=== PATIENT | female | born 1995 | race Caucasian/White ===

== ENCOUNTER → 2020-04-17 | Outpatient (REF) | LOC: COL.LAB 15:46 | DX: Z20.828 Contact with and (suspected) exposure to other viral communicable diseases (principal) ==

== ENCOUNTER 2021-01-16 04:52 | Emergency (ER) | payer OTHER ==
[~2021-01-16] VITALS: Ht 162.6 cm; Wt 88.6 kg
[2021-01-16 04:59] VITALS: BP 159/113; TEMP 98.2
[2021-01-16 05:17] LABS: COLLECTION METHOD CLEAN CATCH
[2021-01-16 05:20] LABS: BASO # 0.1 (0.0-0.2); BASO % 0.5 % (0.0-2.0); EOS # 0.6 (0.0-0.7); GRAN # 5.1 (1.4-6.5); GRAN % 51.2 % (42.2-75.2); LYMPH # 3.3 (1.2-3.4); LYMPH % 32.9 % (20.0-51.0); MEAN CELL VOLUME 89 fl (80.0-100.0); MEAN CORPUSCULAR HEMOGLOBIN 30 pg (27.0-31.0); MEAN CORPUSCULAR HGB CONC 34 g/dl (33.0-37.0); MEAN PLATELET VOLUME 10.1 fl (7.4-10.4); MONO # 0.9 (0.1-0.6); MONO % 9.2 % (1.7-9.3); PLATELET COUNT 264 K/mm3 (130-400); RED BLOOD COUNT 4.93 M/mm3 (4.10-5.30); REDCELL DISTRIBUTION WIDTH-CV 12.4 % (11.5-14.5)
[2021-01-16 05:23] LABS: PH 5 (5-8); SQUAMOUS EPITHELIAL 0-2 /hpf; URINE APPEARANCE Clear; URINE BACTERIA None Seen /hpf; URINE BILIRUBIN Negative (NEGATIVE); URINE BLOOD 2+ (NEGATIVE); URINE COLOR Straw; URINE GLUCOSE Negative (NEGATIVE); URINE KETONE Negative (NEGATIVE); URINE LEUKOCYTE ESTERASE Negative (NEGATIVE); URINE NITRATE Negative (NEGATIVE); URINE PROTEIN(semi-quant) Negative (NEGATIVE); URINE RBC 0-2 /hpf; URINE UROBILINOGEN Negative (NEGATIVE)
[2021-01-16 05:42] LABS: ALBUMIN 4.3 gm/dL (3.5-5.0); BILIRUBIN,TOTAL 0.7 mg/dL (0.2-1.2); CALCIUM 9.6 mg/dL (8.4-10.2); CREATININE, serum 0.82 mg/dL (0.57-1.11); POTASSIUM 3.8 mmol/L (3.5-4.5); TOTAL PROTEIN 7.6 gm/dL (6.2-8.1)
[2021-01-16] MEDS ORDERED: FLEXERIL 1010 MG/TAB PO (06:48)
[2021-01-16] MEDS ORDERED: ZOFRAN ODT4 MG PO ×3 (08:20→09:00)
[2021-01-16] MEDS ORDERED: NORCO 325 MG-51 TAB PO ×2 (08:20)
[2021-01-16 08:38] VITALS: PULSE 78
[2021-01-16] MEDS ORDERED: PERCOCET 325 MG1 TA2 PO (09:00)
== END 2021-01-16 08:38 | disposition home or self-care (01) ==
LOC: COL.ER 04:52
PROVIDERS: Emergency Medicine
DX: N93.8 Other specified abnormal uterine and vaginal bleeding (principal); M54.50 Low back pain, unspecified; R10.32 Left lower quadrant pain
CPT/HCPCS: J1885; J2270; J2405; J7030; Q9967